=== PATIENT | female | born 2000 | race Caucasian/White ===

== ENCOUNTER 2024-09-02 14:58 | Inpatient (IN) | payer BC ==
[~2024-09-02 14:58] MED LIST: Bupivacaine 0.25% HCL 30 ML VIAL ONE; Lidocaine 2% PF 5 ML VIAL ONE; ePHEDrine Sulfate 50 MG/10 ML VIAL ONE
[2024-09-02 15:28] VITALS: BMI 36.4
[2024-09-02] MEDS ORDERED: Ondansetron PF 4 MG/2 ML Vial IVP PRN (16:40)
[2024-09-02] MEDS ORDERED: Lorazepam 2 MG/ML VIAL SLOW IVP PRN (16:40)
[2024-09-02] MEDS ORDERED: Promethazine HCl 25 MG/ML VIAL IM PRN (16:40)
[2024-09-02] MEDS ORDERED: Calcium Gluc 4.6 MEQ/10 ML (100 MG/ML) SLOW IVP PRN (16:40)
[2024-09-02] MEDS ORDERED: Tranexamic Acid 1,000 MG/10 ML VIAL IVP PRN (16:40)
[2024-09-02] MEDS ORDERED: Methylergonovine 0.2 MG/ML VIAL IM PRN (16:40)
[2024-09-02] MEDS ORDERED: Diphenoxylate HCl/Atropine Tablet PO PRN (16:40)
[2024-09-02] MEDS ORDERED: Misoprostol 200 MCG TAB PR PRN (16:40)
[2024-09-02] MEDS ORDERED: Carboprost 250 MCG/ML AMP IM PRN (16:40)
[2024-09-02] MEDS: NIFEdipine 10 MG CAP ONE (17:27)
[2024-09-02] MEDS: Magnesium Sulfate 20 gm/500 ml 20 GM/500 ML BAG IVPB SCH (17:51)
[2024-09-02] MEDS: Misoprostol 100 MCG TAB VAG SCH (18:26)
[2024-09-02 18:27] LABS: #Basophils 0.06 10x3/uL (0.0-0.2); #Eosinophils 0.18 10x3/uL (0.0-0.5); #Monocytes 0.59 10x3/uL (0.0-1.1); #Neutrophils 5.65 10x3/uL (1.5-8.4); %Basophils 0.7 % (0.0-2.0); %Eosinophils 2.1 % (0.0-6.0); %Lymphocytes 25.1 % (18.0-47.0); %Monocytes 6.7 % (0.0-10.0); %Neutrophils 64.4 % (40.0-75.0); Hematocrit 37.2 % (34.9-44.5); Hemoglobin 12.7 g/dL (12.0-15.5); Mean Corpuscular HGB CONC 34.1 g/dL (32.0-36.0); Mean Corpuscular Hemoglobin 28.4 pg (27.0-33.0); Mean Corpuscular Volume 83.2 fL (81.6-98.3); Mean Platelet Volume 12.6 fL (7.4-10.4); Platelet Count 211 10x3/uL (150-450); RBC Distribution Width 15.3 % (11.5-14.5); Red Blood Cell (RBC) Count 4.47 10x6/uL (3.90-5.03); White Blood Cell (WBC) Count 8.8 10x3/uL (3.5-10.5)
[2024-09-02 18:29] LABS: Creatinine, Urine 47.8 mg/dL (47-110)
[2024-09-02 18:37] LABS: ALT (SGPT) 25 U/L (8-55); AST (SGOT) 35 U/L (5-34); Alkaline Phosphatase 148 U/L (40-110); Anion Gap 17 mmol/L (10-20); BUN (Urea Nitrogen) 8 mg/dL (7.0-18.7); Bilirubin, Total 0.3 mg/dL (0.2-1.2); Calc. Creatinine Clearance 215 mL/min (70-130); Calcium 9.3 mg/dL (7.8-10.44); Carbon Dioxide 18 mmol/L (22-29); Chloride 107 mmol/L (98-107); Estimated GFR 120; Globulin 3.7 g/dL (2.4-3.5); Glucose 76 mg/dL (70-105); Potassium 4.3 mmol/L (3.5-5.1); Protein, Total 6.7 g/dL (6.0-8.3); Sodium 138 mmol/L (136-145)
[2024-09-02 19:02] LABS: HBsAg Index 0.19 S/CO (0-0.99); Hep B Surf Ag - L&D Non-Reactive S/CO (NonReactive)
[2024-09-02 19:04] LABS: Syphilis Antibody Nonreactive (Nonreactive); Syphilis Antibody Index 0.07 S/CO (<1.00 Non-Reactive)
[2024-09-02] MEDS ORDERED: Labetalol HCl 100 MG/20 ML VIAL SLOW IVP PRN ×2 (20:30)
[2024-09-03] MEDS: hydrALAZINE 20 MG/ML VIAL SLOW IVP PRN ×2 (08:42→11:04)
[2024-09-03] MEDS ORDERED: Acetaminophen 500 MG TAB PO PRN (10:46)
[2024-09-03] MEDS: Acetaminophen 500 MG TAB PO PRN (11:12)
[2024-09-03] MEDS: Labetalol HCl 100 MG/20 ML VIAL SLOW IVP PRN (11:28)
[2024-09-03] MEDS ORDERED: Oxytocin 30 units/NS 500 ML 500 ML IV SCH (12:30)
[2024-09-03] MEDS: Oxytocin 30 units/NS 500 ML 500 ML IV SCH (12:47)
[2024-09-03 13:00] LABS: #Basophils 0.06 10x3/uL (0.0-0.2); #Eosinophils 0.08 10x3/uL (0.0-0.5); #Monocytes 0.82 10x3/uL (0.0-1.1); #Neutrophils 8.42 10x3/uL (1.5-8.4); %Basophils 0.5 % (0.0-2.0); %Eosinophils 0.7 % (0.0-6.0); %Lymphocytes 13.4 % (18.0-47.0); %Monocytes 7.5 % (0.0-10.0); %Neutrophils 76.9 % (40.0-75.0); Hematocrit 36.7 % (34.9-44.5); Mean Corpuscular HGB CONC 32.7 g/dL (32.0-36.0); Mean Corpuscular Hemoglobin 27.5 pg (27.0-33.0); Mean Corpuscular Volume 84.2 fL (81.6-98.3); Mean Platelet Volume 12.2 fL (7.4-10.4); Platelet Count 176 10x3/uL (150-450); RBC Distribution Width 15.4 % (11.5-14.5); Red Blood Cell (RBC) Count 4.36 10x6/uL (3.90-5.03)
[2024-09-03 13:12] LABS: ALT (SGPT) 58 U/L (8-55); AST (SGOT) 67 U/L (5-34); Albumin 2.6 g/dL (3.5-5.0); Alkaline Phosphatase 153 U/L (40-110); Anion Gap 17 mmol/L (10-20); BUN (Urea Nitrogen) 6 mg/dL (7.0-18.7); Bilirubin, Total 0.5 mg/dL (0.2-1.2); Calc. Creatinine Clearance 209 mL/min (70-130); Calcium 8.2 mg/dL (7.8-10.44); Carbon Dioxide 17 mmol/L (22-29); Chloride 104 mmol/L (98-107); Estimated GFR 117; Globulin 3.6 g/dL (2.4-3.5); Glucose 86 mg/dL (70-105); Potassium 3.5 mmol/L (3.5-5.1); Protein, Total 6.2 g/dL (6.0-8.3); Sodium 134 mmol/L (136-145)
[2024-09-04] MEDS: fentaNYL 2 mcg/Ropivacaine 0.2% Epidural 100 ML CADD EPIDURAL SCH (04:27)
[2024-09-04] MEDS ORDERED: Acetaminophen 325 MG TAB PO PRN ×2 (04:44→15:22)
[2024-09-04] MEDS ORDERED: Naloxone HCl 0.4 mg/ml Vial IVP PRN ×4 (04:44→13:42)
[2024-09-04] MEDS ORDERED: ePHEDrine Sulfate 50 MG/10 ML VIAL SLOW IVP PRN (04:44)
[2024-09-04] MEDS ORDERED: Promethazine HCl 25 MG/ML VIAL IM PRN ×2 (04:44→13:42)
[2024-09-04] MEDS ORDERED: diphenhydrAMINE 50 MG/ML VIAL IVP PRN ×2 (04:44→13:42)
[2024-09-04] MEDS ORDERED: Ondansetron PF 4 MG/2 ML Vial IVP PRN ×4 (04:44→15:22)
[2024-09-04] MEDS ORDERED: Moisturizing Cream (Eucerin) 113 GM JAR TOP PRN ×2 (04:44→13:42)
[2024-09-04] MEDS ORDERED: Lactated Ringer's 500 ML IV PRN (04:44)
[2024-09-04] MEDS ORDERED: Communication Order-Pharmacy FS SCH ×2 (04:45→13:45)
[2024-09-04 05:32] LABS: Hematocrit 35.5 % (34.9-44.5); Hemoglobin 11.9 g/dL (12.0-15.5); Mean Corpuscular HGB CONC 33.5 g/dL (32.0-36.0); Mean Corpuscular Hemoglobin 28.2 pg (27.0-33.0); Mean Corpuscular Volume 84.1 fL (81.6-98.3); Platelet Count 195 10x3/uL (150-450); RBC Distribution Width 15.9 % (11.5-14.5); Red Blood Cell (RBC) Count 4.22 10x6/uL (3.90-5.03); White Blood Cell (WBC) Count 10.1 10x3/uL (3.5-10.5)
[2024-09-04 05:43] LABS: ALT (SGPT) 47 U/L (8-55); AST (SGOT) 41 U/L (5-34); Albumin 2.6 g/dL (3.5-5.0); Alkaline Phosphatase 156 U/L (40-110); Anion Gap 16 mmol/L (10-20); BUN (Urea Nitrogen) 8 mg/dL (7.0-18.7); Bilirubin, Total 0.4 mg/dL (0.2-1.2); Calc. Creatinine Clearance 182 mL/min (70-130); Calcium 8.1 mg/dL (7.8-10.44); Carbon Dioxide 18 mmol/L (22-29); Chloride 101 mmol/L (98-107); Estimated GFR 99; Globulin 3.8 g/dL (2.4-3.5); Glucose 94 mg/dL (70-105); Potassium 3.8 mmol/L (3.5-5.1); Protein, Total 6.4 g/dL (6.0-8.3); Sodium 131 mmol/L (136-145)
[2024-09-04] MEDS ORDERED: Bicitra 30 ML UDCUP PO PRN (10:59)
[2024-09-04] MEDS: Famotidine/PF 20 mg/2ml Vial SLOW IVP PRN (11:25)
[2024-09-04] MEDS: Azithromycin 500 MG in Sodium Chloride 0.9% 250 ML 250 ML IVPB SCH (11:26)
[2024-09-04] MEDS: CEFAZOLIN 2 GM in Sodium Chloride 0.9% 100 ML IVPB SCH (11:26)
[2024-09-04] MEDS ORDERED: fentaNYL 50 mcg/mL 1 mL Vial SLOW IVP PRN (13:42)
[2024-09-04] MEDS ORDERED: Naloxone HCl 0.4 mg/ml Vial IV PRN (13:42)
[2024-09-04] MEDS ORDERED: Meperidine HCl/PF 25 MG (1 mL) VIAL SLOW IVP PRN (13:42)
[2024-09-04] MEDS ORDERED: HYDROmorphone 0.5 MG/0.5 ML SYRINGE SLOW IVP PRN (13:42)
[2024-09-04] MEDS ORDERED: Ketorolac Tromethamine 30 MG (1 mL) VIAL IVP SCH (13:45)
[2024-09-04] MEDS ORDERED: Lanolin Ointment 7 GM TUBE TOP PRN (15:22)
[2024-09-04] MEDS ORDERED: diphenhydrAMINE 25 MG CAP PO PRN (15:22)
[2024-09-04] MEDS ORDERED: hydrALAZINE 20 MG/ML VIAL SLOW IVP PRN (15:22)
[2024-09-04] MEDS ORDERED: Misoprostol 200 MCG TAB PR PRN (15:22)
[2024-09-04 18:49] LABS: Hematocrit 30.8 % (34.9-44.5); Hemoglobin 10.2 g/dL (12.0-15.5); Mean Corpuscular HGB CONC 33.1 g/dL (32.0-36.0); Mean Corpuscular Hemoglobin 27.6 pg (27.0-33.0); Mean Corpuscular Volume 83.5 fL (81.6-98.3); Mean Platelet Volume 11.9 fL (7.4-10.4); Platelet Count 184 10x3/uL (150-450); RBC Distribution Width 15.6 % (11.5-14.5); Red Blood Cell (RBC) Count 3.69 10x6/uL (3.90-5.03); White Blood Cell (WBC) Count 13.9 10x3/uL (3.5-10.5)
[2024-09-04 19:05] LABS: D-Dimer Test 3.27 mcg/mL (0.19-0.50); INR-International Normal Ratio 0.9; PTT 23.9 sec (22.0-33.0); Prothrombin Time 9.8 sec (9.5-12.1)
[2024-09-04] MEDS: Promethazine HCl 25 MG/ML VIAL ONE (19:23)
[2024-09-04] MEDS: Tranexamic Acid 1,000 MG/10 ML VIAL ONE ×2 (19:23→20:06)
[2024-09-04] MEDS: Morphine PF 10 MG/10 ML VIAL ONE (19:23)
[2024-09-04] MEDS: Ondansetron PF 4 MG/2 ML Vial ONE (19:23)
[2024-09-04] MEDS: fentaNYL 50 mcg/mL 1 mL Vial ONE ×2 (19:23→19:24)
[2024-09-04] MEDS: PHENYLEPHRINE-NS 100 MCG/ML 10 ML SYRINGE ONE ×2 (19:23)
[2024-09-04] MEDS: Phytonadione Neonatal 1 MG/0.5 ML AMP ONE (19:24)
[2024-09-04] MEDS: Erythromycin Base 0.5% Oint 1 GM TUBE ONE (19:24)
[2024-09-04] MEDS: Oxytocin 10 UNITS/ML VIAL ONE (20:06)
[2024-09-04] MEDS: Ketorolac Tromethamine 30 MG (1 mL) VIAL IVP SCH (20:06)
[2024-09-04] MEDS: Bupivacaine PF 0.5% 30 ML VIAL ONE (20:07)
[2024-09-04] MEDS: Lidocaine 2% MPF 10 ML AMP (For Epidural Use) ONE (20:07)
[2024-09-05] MEDS: Docusate 100 MG CAP PO SCH (02:02)
[2024-09-05] MEDS: Ketorolac Tromethamine 30 MG (1 mL) VIAL IVP PRN (02:02)
[2024-09-05 05:14] LABS: Hematocrit 28.6 % (34.9-44.5); Hemoglobin 9.6 g/dL (12.0-15.5); Mean Corpuscular HGB CONC 33.6 g/dL (32.0-36.0); Mean Corpuscular Hemoglobin 28.4 pg (27.0-33.0); Mean Corpuscular Volume 84.6 fL (81.6-98.3); Mean Platelet Volume 11.9 fL (7.4-10.4); Platelet Count 164 10x3/uL (150-450); RBC Distribution Width 15.9 % (11.5-14.5); Red Blood Cell (RBC) Count 3.38 10x6/uL (3.90-5.03); White Blood Cell (WBC) Count 10.5 10x3/uL (3.5-10.5)
[2024-09-05 05:38] LABS: ALT (SGPT) 24 U/L (8-55); AST (SGOT) 22 U/L (5-34); Albumin 1.9 g/dL (3.5-5.0); Alkaline Phosphatase 114 U/L (40-110); Anion Gap 11 mmol/L (10-20); BUN (Urea Nitrogen) 9 mg/dL (7.0-18.7); Bilirubin, Total 0.2 mg/dL (0.2-1.2); Calc. Creatinine Clearance 186 mL/min (70-130); Calcium 6.8 mg/dL (7.8-10.44); Carbon Dioxide 22 mmol/L (22-29); Chloride 105 mmol/L (98-107); Critical Call Chemistry NUR.GG4@0538/JG2/W/READBACK; Estimated GFR 102; Globulin 2.9 g/dL (2.4-3.5); Glucose 91 mg/dL (70-105); Protein, Total 4.8 g/dL (6.0-8.3); Sodium 134 mmol/L (136-145)
[2024-09-05] MEDS: fentaNYL/Ropivacaine Epidural 100 ML ONE (07:32)
[2024-09-05] MEDS: Prenatal Vitamin 1 TAB PO SCH (08:21)
[2024-09-05] MEDS: Furosemide 20 MG (2 mL) VIAL SLOW IVP SCH (08:21)
[2024-09-05] MEDS: Boostrix 0.5 ML (Tdap) VIAL (>/=7 yrs of age) IM ONE (09:50)
[2024-09-05] MEDS: NIFEdipine 10 MG CAP PO SCH (09:52)
[2024-09-05] MEDS: HYDROcodone/Acetaminophen 5/325 mg Tablet PO PRN ×2 (13:07→18:12)
[2024-09-05] MEDS ORDERED: Polyethylene Glycol 3350 17 GM Packet PO PRN (13:36)
[2024-09-05] MEDS ORDERED: Furosemide 20 MG in Sodium Chloride 0.9% 90 ML IVPB ONE (21:02)
[2024-09-05] MEDS: Ibuprofen 800 MG TAB PO SCH (21:45)
[2024-09-05] MEDS: Simethicone Chewable 80 MG TAB PO PRN (21:47)
[2024-09-06] MEDS: Ferrous Sulfate 325 MG TAB PO SCH (08:12)
[2024-09-06] MEDS: Furosemide 40 MG TAB PO SCH (09:22)
[2024-09-06] MEDS: Polyethylene Glycol 3350 17 GM Packet PO SCH (09:23)
[2024-09-07 07:48] VITALS: TEMP 98.5
[2024-09-07] MEDS: Furosemide 40 MG TAB PO SCH (08:12)
[2024-09-07] MEDS: Polyethylene Glycol 3350 17 GM Packet PO SCH (08:12)
[2024-09-07 10:44] VITALS: BP 138/90
== END 2024-09-07 13:48 | disposition home or self-care (01) | DRG 788 ==
LOC: CSHLD/OP 14:58 → CSHLD 16:42 → CSHPP 09-05 13:28
PROVIDERS: ADMIT Obstetrics & Gynecology; ATTEND Obstetrics & Gynecology
PROC: 10D00Z1 Extraction of Products of Conception, Low, Open Approach (ICD-10-PCS; principal; 2024-09-04)
DX: O14.14 Severe pre-eclampsia complicating childbirth (principal); O76 Abnormality in fetal heart rate and rhythm complicating labor and delivery; O72.1 Other immediate postpartum hemorrhage; Z3A.38 38 weeks gestation of pregnancy; Z79.899 Other long term (current) drug therapy; O99.214 Obesity complicating childbirth; E66.9 Obesity, unspecified; O99.284 Endocrine, nutritional and metabolic diseases complicating childbirth; E28.2 Polycystic ovarian syndrome; Z37.0 Single live birth; O64.0XX0 Obstructed labor due to incomplete rotation of fetal head, not applicable or unspecified
CPT/HCPCS: 36415; 51702; 80053; 82570; 84156; 85025; 85027; 85049; 85300; 85362; 85384; 85610; 85730; 86780; 86850; 86900; 86901; 87340; 99285; J0360; J0456; J0665; J1885; J1940; J2274; J2405; J2550; J2590; J3010; J3475; J3490; J7050